=== PATIENT | male | born 1985 | race Caucasian/White ===

== ENCOUNTER 2016-07-18 05:46 | Emergency (ER) | payer OTHER, MEDICARE ==
[~2016-07-18] VITALS: Ht 195.6 cm; Wt 156.0 kg
[~2016-07-18 05:46] MED LIST: AMOXICILLIN 50500 MG PO; BENZONATATE100 MG PO; KEFLEX 500MG.500 MG PO; LORTAB 5/500 501 TAB PO; NOMEDS; NOMEDS *; NOMEDS XX; ONDANSETRON4 MG PO; PHENERGAN 25MG.25 M1 PO; PREDNISONE 20MG20 MG PO; PROTONIX 40MG T40 MG PO; ROBITUSSIN120 ML/BOT PO; SEPTRA DS 800 M1 TAB PO; SULFAMETHOXAZOL1 TA6 PO; TESSALON PERLE100 MG PO; VOLTAREN75 MG PO; WARFARIN SODIUM10 MG PO; ZANTAC 150150 MG PO; ZITHROMAX Z PA250 MG PO; ZOFRAN4 MG PO; [UNRECOGNIZED DRUG - OTHER] PO
--- NOTE | 2016-07-18 06:10 | Emergency Room Report ---
See Addendum History of Present Illness Time Seen by 06Kamala Presenting Problem in Triage Pt arrived:Walked Presenting Problem:PT STATES HE SLIPPED AND FELL AT WORK. PT C/O PAIN IN BOTH KNEES, LEFT ELBOW, RIGHT HIP AND BACK OF HEAD. Onset of symptoms date/time:07/18/16 or onset unknown for: Treatment Prior to Arrival: FIELD AUDITOR Provided by: Sepsis Risk Assessment: Temp: 97.9 B/P: 144/99 MAP: 114 Pulse: 99 Resp: 18 Recent fever? N Clinical Suspician of Infection? N Mental Status: 1 - Regular (Normal Baseline) Sepsis Risk:Low Sepsis Risk Have you (or family members/close friends) recently traveled outside the [place]? N If Yes, where/when: Have you had exposure to infectious disease within the past month? N TB? Other? Specify: Source patient, RN notes reviewed, family, old records Exam Limitations no limitations Comment wm fell at work x 2 with slip type of injury with head and neck and elbow and hip and knee pain with no neuro sx and no loc and no jt effusions Cardiac Chest Pain Chest pain indicative of cardiac No Timing/Duration this evening Severity moderate ALLERGIES Coded Allergies: morphine (Mild, 07/18/16) Home Medications Reported Medications WARFARIN SOD (Warfarin 10MG) 10 MG PO DAILY History Medical History General CAD? No Angina: No OK: No Hypertension? Yes Hyperlipidemia? No CHF? No DVT? Yes PE? No COPD? No Asthma? No Anemia? No GERD? Yes Gastric ulcers? No GI Bleed? No Hernia? No Thyroid Problems? No Hypothyroidism? No CVA? No Seizures? No Diabetes? No Renal Insuffiency? No End Stage Renal Disease? No UTI? No Stones? No BPH? No GB Disease: Yes Nephritic Syndrome? No Asplenia? No Hepatitis? No Sickle Cell Disease? No Arthritis? No Migraines? No Cataracts? No Glaucoma? No MRSA? Yes HIV? No TB? No Anxiety? Yes Depression? No Cancer? No More? Yes Additional hx: SLEEP APNEA Immunization Hx DT/Tetanus 1-4 Years Ago Flu REFUSES Pneumonia REFUSES Surgical Hx Previous Surgery?N Social History Smoking Hx Smoker: Current Every Day Smoker Tobacco: Yes Type Cigarettes Packs/day < 1 Pack Are you/the child exposed to second-hand smoke: Yes Alcohol Alcohol: Yes Drugs none Review of Systems All Other Systems Reviewed and Negative Constitutional denies fever Eyes denies drainage ENT denies: ear pain, epistaxis, throat pain. Respiratory denies cough, denies shortness of breath, denies wheezing Cardiovascular denies chest pain, denies palpitations, denies syncope Gastrointestinal denies abdominal pain, denies diarrhea, denies vomiting Genitourinary denies: dysuria, frequency, hesitancy, hematuria. Musculoskeletal denies back pain, joint pain, denies joint swelling, neck pain Skin denies rash Psychiatric/Neurological see HPI, headache, denies seizure Physical Exam Vital Signs Vital Signs Date Time Temp Pulse Resp B/P Pulse O2 O2 Flow FiO2 Ox Delivery Rate 07/18 0550 97.9 99 18 144/99 97 - WBC >12,000 or <4,000 or 10% bands? 2 or more SIRS Criteria Met? B/P:144/99 MAP:114 Creatinine >2.0? UA output<0.5ml/kg/hr for 2 hrs? Platelet count >100,000? Lactate >2.0mmol/1? INR >1.2 or PTT > than 60 sec? Evidence of Organ Dysfunction? Provider documented clinical suspician of infection? N Sepsis Criteria Count: 1 Sepsis Risk: Low Sepsis Risk General Appearance no apparent distress Eye Exam - bilateral eye PERRL, bilateral eye EOMI Ear, Nose, Throat normal ENT inspection Neck tender lateral Respiratory Status No: respiratory distress. Cardiovascular regular rate/rhythm Peripheral Pulses Pulses normal Yes Gastrointestinal soft, no organomegaly, no guarding, no rebound Back no CVA tenderness Extremities pelvis stable, pedal edema, knee and elbow pain but no jt effusions Strength 5 Upper Ext (L), 5 Upper Ext (R), 5 Lower Ext (L), 5 Lower Ext (R) Neurologic alert, ball warper tender II-XII nml as tested, no motor/sensory deficits Glascow Coma Scale Glascow Coma Scale Response Value EYE response: 4 Spontaneously 4 MOTOR response: 6 OBEYS 6 VERBAL response: 5 Oriented & Converses 5 Total 15 Reflexes Reflexes normal Yes Mental status normal mood/affect Skin intact Medical Decision Making LABS/Meds/Orders Pt receiving controlled substance in ED? No Results/Orders Laboratory Tests 07/18/16 0719: PT Pending, INR Pending Current Medication Orders Sig/Monica Start time Last Medication Dose Route Stop Time Status Admin Ibuprofen 600 MG ONCE ONE 07/18 0600 DC 07/18 PO 07/18 0601 0558 Ibuprofen 0 .STK-MED ONE 07/18 0558 DC PO Orders Procedure Date/time Status DIET-NOTHING BY MOUTH 07/18 B Active PROTHROMBIN TIME 07/[address] HEAD W/O CONTRAST 07/[address] CERVICAL SPINE W/O CONT. 07/18 605 Active CHEST(2 VIEWS-NOT PORTABLE) 07/[address] SCAN REQ 07/18 05 Complete XRAY/CT/US XRAY/CT/US 1 XRAY chest, elbow, hip, knee, pelvis XR interpretation by reviewed by me Xray Results no fracture seen XRAY/CT/US 2 CT head, C-spine CT interpretation by discussed w/radiologist Time results known: 710 CT Results no fracture seen Departure Departure Time of Disposition 710 Disposition DC Home or Self Care(routine) Clinical Impression Primary Impression: Head contusion Qualifiers: Encounter type: initial encounter Contusion of head detail: unspecified part of head Qualified Code: S00.93XA - Contusion of unspecified part of head, initial encounter Secondary Impressions: Cervical strain, acute Qualifiers: Encounter type: initial encounter Qualified Code: S16.1XXA - Strain of muscle, fascia and tendon at neck level, initial encounter Knee sprain, bilateral Sprain of elbow, left Qualifiers: Encounter type: initial encounter Qualified Code: S53.402A - Unspecified sprain of left elbow, initial encounter Sprain of right hip Qualifiers: Encounter type: initial encounter Qualified Code: S73.101A - Unspecified sprain of right hip, initial encounter Condition STABLE Patient Instructions DI for Contusion Additional Instructions tyenol and ice and recheck if any prolems Discharge Counseling Counseled pt/family regarding diagnosis, test results, follow up needs ED Critical Care Critical Care No Comments workman comp form completed at 0730
--- NOTE | 2016-07-18 07:26 | RADIOLOGY REPORT PS360 ---
KNEE-3 VIEWS-RT HISTORY: Posttraumatic pain FALL, INJURY COMPARISON: None FINDINGS: Bony Structures: No fracture or dislocation. No lytic or blastic change. Normal mineralization. Joint Space: Well-preserved. No significant arthritic changes evident. Soft Tissues: Unremarkable. No obvious joint effusion. No radio opaque foreign bodies or soft tissue gas. Other findings: No other significant findings IMPRESSION: Negative Knee
--- NOTE | 2016-07-18 07:26 | RADIOLOGY REPORT PS360 ---
KNEE-3 VIEWS-LT HISTORY: Post traumatic pain FALL, INJURY COMPARISON: None FINDINGS: Bony Structures: No fracture or dislocation. No lytic or blastic change. Normal mineralization. Joint Space: Well-preserved. No significant arthritic changes evident. Soft Tissues: Unremarkable. No obvious joint effusion. No radio opaque foreign bodies or soft tissue gas. Other findings: No other significant findings IMPRESSION: Negative Knee
--- NOTE | 2016-07-18 07:27 | RADIOLOGY REPORT PS360 ---
HIP RT 2-3V W/PELVIS IF PERFOR HISTORY: Posttraumatic pain FALL, INJURY COMPARISON: None FINDINGS: No fracture or dislocation is evident. No significant degenerative change. No lytic or blastic change. Unremarkable soft tissues. Small bone island projects over the femoral head IMPRESSION: No acute finding
--- NOTE | 2016-07-18 07:27 | RADIOLOGY REPORT PS360 ---
PELVIS AP ONLY HISTORY: Fall with injury and pain FALL, INJURY COMPARISON: None FINDINGS: No fracture or dislocation is evident. No significant degenerative change. No lytic or blastic change. The SI joints have an unremarkable appearance. Unremarkable soft tissues. IMPRESSION: Negative pelvis.
--- NOTE | 2016-07-18 07:28 | RADIOLOGY REPORT PS360 ---
ELBOW-LT-3 VIEWS HISTORY: Posttraumatic pain FALL, INJURY COMPARISON: None FINDINGS: BONY STRUCTURES: No fracture or dislocation. No lytic or blastic change. Normal mineralization. SOFT TISSUES: Unremarkable. No radio opaque foreign bodies. No displaced fat pad. JOINT SPACE: Well-preserved. No significant arthritic changes evident. IMPRESSION: Negative elbow.
--- NOTE | 2016-07-18 07:29 | RADIOLOGY REPORT PS360 ---
CHEST(2 VIEWS-NOT PORTABLE) HISTORY: Chest pain following injury, right-sided pain FALL COMPARISON: 06/17/2016 FINDINGS: The cardiomediastinal silhouette and pulmonary vascularity are within normal limits. The lungs are clear without infiltrates, suspicious nodules, or pleural effusions. No acute bony abnormalities. IMPRESSION: Negative chest, no acute finding
[2016-07-18 07:56] VITALS: BP 142/106
--- NOTE | 2016-07-18 08:40 | RADIOLOGY REPORT PS360 ---
CT HEAD W/O CONTRAST HISTORY: Headache post trauma HEAD INJURY COMPARISON: None TECHNIQUE: Axial images obtained without contrast. Brain and bone windows reviewed. FINDINGS: No midline shift, mass effect, intracranial hemorrhage, hydrocephalus, or extra-axial fluid collection is evident. The calvarium has an unremarkable appearance. No mastoid effusion. The visualized paranasal sinuses are unremarkable. IMPRESSION: Negative CT head without contrast. No acute finding.
--- NOTE | 2016-07-18 08:42 | RADIOLOGY REPORT PS360 ---
CT CERVICAL SPINE W/O CONT INDICATION: Neck pain following trauma HEAD INJURY COMPARISON: None TECHNIQUE: Axial images are obtained without contrast. Sagittal and coronal reformatted images are reviewed as well. FINDINGS: There is straightening of the cervical lordosis. This is nonspecific and may be due to positioning or muscle spasm. No fracture or dislocation. No prevertebral soft tissue swelling. Lung apices are clear. Scattered small nodes are present within the neck. IMPRESSION: 1. No acute fracture.. 2. Straightening of cervical lordosis
== END 2016-07-18 07:57 | disposition home or self-care (01) ==
LOC: ER 05:46
DX: S00.93XA Contusion of unspecified part of head, initial encounter (principal); S16.1XXA Strain of muscle, fascia and tendon at neck level, initial encounter; S53.402A Unspecified sprain of left elbow, initial encounter; S73.101A Unspecified sprain of right hip, initial encounter; S83.92XA Sprain of unspecified site of left knee, initial encounter; S83.91XA Sprain of unspecified site of right knee, initial encounter; W01.0XXA Fall on same level from slipping, tripping and stumbling without subsequent striking against object, initial encounter; Y92.69 Other specified industrial and construction area as the place of occurrence of the external cause; Y99.0 Civilian activity done for income or pay; I10 Essential (primary) hypertension; K21.9 Gastro-esophageal reflux disease without esophagitis; Z79.01 Long term (current) use of anticoagulants; Z72.0 Tobacco use